=== PATIENT | female | born 1995 | race African-American/Black ===

== ENCOUNTER 2021-03-10 02:20 | Emergency (ER) | payer BC ==
[~2021-03-10] VITALS: Ht 162.6 cm; Wt 72.6 kg
[2021-03-10] MEDS ORDERED: HYDROCODON-ACE1 EAC7 PO (02:34)
[2021-03-10] MEDS ORDERED: LIDOCAINE 2%2 %/5 GM SWISH&SPIT (02:34)
[2021-03-10 03:10] LABS: ABSOLUTE LYMPHOCYTES 1.7 thou/uL (0.8-5.3); ABSOLUTE MONOCYTES 0.5 thou/uL (0.0-1.2); ABSOLUTE NEUTROPHILS 7.2 thou/uL (1.6-8.1); BASOPHILS 0.4 %; EOSINOPHILS 0.1 %; HEMATOCRIT 39.1 % (37.0-47.0); HEMOGLOBIN 12.9 gm/dL (12.0-15.0); LYMPHOCYTES 17.9 %; MCH 27.2 pg (26.0-34.0); MCHC 32.9 g/dL (28.0-37.0); MCV 82.5 fL (80.0-100.0); MONOCYTES 5.7 %; NUCLEATED RBCS 0 /100WBC; PLATELET COUNT* 245 thou/uL (150-400); POLYS 75.9 %; RBC 4.74 mil/uL (4.20-5.00); RDW-CV 14.4 % (10.5-14.5); WBC 9.5 thou/uL (4.0-11.0)
[2021-03-10 03:13] LABS: CALCIUM 8.7 mg/dL (8.5-10.1); CREATININE 0.9 mg/dL (0.6-1.3); POTASSIUM 3.5 mmol/L (3.5-5.1)
[2021-03-10] MEDS ORDERED: PERCOCET 7.5-31 EAC1 PO (03:39)
[2021-03-10] MEDS ORDERED: ZOFRAN ODT4 MG PO (03:39)
[2021-03-10 04:11] VITALS: BP 120/70
== END 2021-03-10 04:11 | disposition home or self-care (01) ==
LOC: M.ERS 02:20
PROVIDERS: Emergency Medicine
DX: G89.18 Other acute postprocedural pain (principal); Z88.0 Allergy status to penicillin; Z90.89 Acquired absence of other organs; Z79.899 Other long term (current) drug therapy